=== PATIENT | male | born 1935 | race Two or more races ===

== ENCOUNTER 2018-03-10 13:13 | Outpatient (CLI) | payer MEDICARE, MEDICAID ==
[2018-03-10 13:47] VITALS: BP 104/49
== END 2018-03-10 23:59 | disposition home or self-care (01) ==
LOC: MSC 13:13
PROVIDERS: ATTEND Urology
DX: N40.1 Benign prostatic hyperplasia with lower urinary tract symptoms (principal); R39.14 Feeling of incomplete bladder emptying; E11.9 Type 2 diabetes mellitus without complications; Z79.84 Long term (current) use of oral hypoglycemic drugs; I10 Essential (primary) hypertension; Z79.82 Long term (current) use of aspirin

== ENCOUNTER 2018-03-10 14:38 | Outpatient (CLI) | payer MEDICARE, MEDICAID | END 2018-03-10 23:59 | disposition home or self-care (01) | LOC: LAB 14:38 | PROVIDERS: ATTEND Urology | DX: N40.1 Benign prostatic hyperplasia with lower urinary tract symptoms (principal); R33.9 Retention of urine, unspecified | CPT/HCPCS: 36415; 84153-TC ==

== ENCOUNTER 2018-03-14 10:51 | Outpatient (CLI) | payer MEDICARE, MEDICAID | END 2018-03-14 23:59 | disposition home or self-care (01) | LOC: US 10:51 | PROVIDERS: ATTEND Urology | DX: N40.1 Benign prostatic hyperplasia with lower urinary tract symptoms (principal); R33.9 Retention of urine, unspecified | CPT/HCPCS: 76856-TC ==